=== PATIENT | female | born 1965 | race Caucasian/White ===

== ENCOUNTER 2017-06-18 21:16 | Emergency (ER) | payer BC ==
[2017-06-18] MEDS ORDERED: Clindamycin CAP* 150 MG PO ONE (21:34)
[2017-06-18] MEDS ORDERED: diPHENhydraMINE LIQ* 12.5 MG/5 ML UDC PO ONE (21:36)
[2017-06-18] MEDS ORDERED: Al Hydrox/Mg Hydrox/Simet LIQ* 30 ML UDC PO ONE (21:36)
[2017-06-18] MEDS ORDERED: Lidocaine 2% VISCOUS* 15 ML UDC SWISH SPIT ONE (21:39)
[2017-06-18 21:40] VITALS: BP 158/90
--- NOTE | 2017-06-18 21:54 | UC ---
Skin Complaint HPI - HPI Summary HPI Summary: 1. Ulcerations on right side of palate for 1 day 2 Abscess on left lower abdomen for 2 days now open and draining - History of Current Complaint Chief Complaint: UCGeneralIllness Time Seen by Provider: 06/18/17 21:27 Stated Complaint: MOUTH ISSUE Hx Obtained From: Patient ?: No Onset/Duration: Sudden Onset Skin Exposure Onset/Duration: Days Ago Timing: Constant Onset Severity: Moderate Current Severity: Moderate Pain Intensity: 6 Pain Scale Used: 0-10 Numeric Character: Redness, Raised, Painful Aggravating Factor(s): Nothing Alleviating Factor(s): Heat - abdomen Associated Signs & Symptoms: Positive: Drainage - abdomen - Allergy/Home Medications Allergies/Adverse Reactions: Allergies Allergy/AdvReac Type Severity Reaction Status Date / Time No Known Allergies Allergy Verified 06/18/17 21:35 Review of Systems Constitutional: Negative Skin: Other - open are left lower abdomen, gingival ulcers right side of palate Eyes: Negative ENT: Negative Respiratory: Negative Cardiovascular: Negative Gastrointestinal: Negative Genitourinary: Negative Motor: Negative Neurovascular: Negative Musculoskeletal: Negative Neurological: Negative Psychological: Negative Is Patient Immunocompromised?: No All Other Systems Reviewed And Are Negative: Yes PMH/Surg Hx/FS Hx/Imm Hx Previously Healthy: Yes - Surgical History Surgical History: Yes Surgery Procedure, Year, and Place: Gallbladder - Family History Known Family History: Positive: None - Social History Occupation: Employed Full-time Lives: With Family Alcohol Use: None Substance Use Type: None Smoking Status (MU): Never Smoked Tobacco Physical Exam Triage Information Reviewed: Yes Appearance: No Pain Distress, Ill-Appearing - mild, Obese Vital Signs: Initial Vital Signs Temp 98.4 F 06/18/17 21:35 Pulse 86 06/18/17 21:35 Resp 16 06/18/17 21:35 BP 158/90 06/18/17 21:35 Pulse Ox 99 06/18/17 21:35 Vital Signs Reviewed: Yes Eye Exam: Normal Eyes: Positive: Conjunctiva Clear ENT Exam: Normal ENT: Positive: Normal ENT inspection, Hearing grossly normal, Pharyngeal erythema - right side of palate with ulcerations, TMs normal, Uvula midline. Negative: Nasal congestion, Tonsillar swelling, Tonsillar exudate, Trismus, Muffled voice, Hoarse voice, Dental tenderness, Sinus tenderness Dental Exam: Normal Neck exam: Normal Neck: Positive: Supple, Nontender, No Lymphadenopathy Respiratory Exam: Normal Respiratory: Positive: Chest non-tender, Lungs clear, Normal breath sounds, No respiratory distress, No accessory muscle use Cardiovascular Exam: Normal Cardiovascular: Positive: RRR, No Murmur, Pulses Normal, Brisk Capillary Refill Abdominal Exam: Normal Abdomen Description: Positive: Nontender, No Organomegaly, Soft Bowel Sounds: Positive: Present Musculoskeletal Exam: Normal Musculoskeletal: Positive: Strength Intact, ROM Intact, No Edema Neurological Exam: Normal Neurological: Positive: Alert, Muscle Tone Normal Psychological Exam: Normal Skin Exam: Other Skin: Positive: Other - 10x17 erythema with purulent draining center induration 4 cm diameter Course/Dx - Course Course Of Treatment: wound culture, magic mouthwash, clindamycin, follow with pcp - Diagnoses Provider Diagnoses: gingival stomatitis, left abd all cellulitis with draining abscess, elevated blood pressure without diagnosis of hypertension Discharge - Discharge Plan Condition: Stable Disposition: HOME Prescriptions: Clindamycin Cap(NF) [Clindamycin Cap 300 mg Cap(NF)] 300 mg PO TID #30 cap Patient Education Materials: Abscess (ED), Gingivostomatitis (ED), Warm Compress or Soak (ED) Referrals: Jo Ann Bassett NP [Primary Care Provider] - 3 Days
== END 2017-06-18 22:08 | disposition home or self-care (01) ==
LOC: UCCORT 21:16
DX: K12.1 Other forms of stomatitis (principal); L03.311 Cellulitis of abdominal wall; L02.211 Cutaneous abscess of abdominal wall; R03.0 Elevated blood-pressure reading, without diagnosis of hypertension
CPT/HCPCS: 87070; 87205; 99213; A9270-GY; G0463

== ENCOUNTER 2017-07-16 18:03 | Emergency (ER) | payer BC ==
[2017-07-16 19:41] VITALS: BP 144/79
--- NOTE | 2017-07-16 19:57 | UC ---
UC General HPI - HPI Summary HPI Summary: swollen lymphnodes right axilla and neck x 1 week + fever , chills no sore throat, no cough, no rash or lesions - History of Current Complaint Chief Complaint: UCGeneralIllness Stated Complaint: SWOLLEN GLANDS & THROAT Time Seen by Provider: 07/16/17 19:40 Hx Obtained From: Patient Hx Last Menstrual Period: 07/06/17 Onset/Duration: Gradual Onset, Lasting Days - 7, Still Present Timing: Constant Onset Severity: Moderate Current Severity: Moderate Pain Intensity: 1 Pain Location at: right axilla Pain Radiates to: no Aggravating: touch Alleviating: Ibuprofen Associated Signs & Symptoms: Negative: Abdominal Pain, Anticoagulation Therapy, Back Pain, Confusion, Cough, Chest Pain, Decreased Responsiveness, Dizziness, Diarrhea, Dysuria, Decreased Oral Intake, Diaphoresis, Edema, Fever, Headache, Nausea, Palpitations, Trauma - Allergy/Home Medications Allergies/Adverse Reactions: Allergies Allergy/AdvReac Type Severity Reaction Status Date / Time No Known Allergies Allergy Verified 07/16/17 19:37 Home Medications: Home Medications Acetaminophen [Acetaminophen Extra Strength] 1,000 mg PO ONCE 07/16/17 [History Confirmed 07/16/17] Meloxicam 7.5 mg PO DAILY 07/16/17 [History Confirmed 07/16/17] PMH/Surg Hx/FS Hx/Imm Hx Previously Healthy: Yes - Surgical History Surgical History: Yes Surgery Procedure, Year, and Place: Gallbladder - Family History Known Family History: Positive: None Negative: Blood Disorder - Social History Alcohol Use: None Substance Use Type: None Smoking Status (MU): Never Smoked Tobacco Review of Systems Constitutional: Fever, Chills, Fatigue Skin: Negative Eyes: Negative ENT: Negative Respiratory: Negative Cardiovascular: Negative Is Patient Immunocompromised?: No All Other Systems Reviewed And Are Negative: Yes Physical Exam Triage Information Reviewed: Yes Appearance: Well-Appearing, Obese Vital Signs: Initial Vital Signs Temp 99.4 F 07/16/17 19:34 Pulse 84 07/16/17 19:34 Resp 16 07/16/17 19:34 BP 144/79 07/16/17 19:34 Pulse Ox 99 07/16/17 19:34 Vital Signs Reviewed: Yes Eyes: Positive: Conjunctiva Clear ENT: Positive: Normal ENT inspection, Hearing grossly normal, Pharynx normal, Pharyngeal erythema Neck: Positive: Supple, Nontender, Enlarged Nodes @ - right axillary , cervical lymphadenopathy Respiratory Exam: Normal Respiratory: Positive: Chest non-tender, Lungs clear, Normal breath sounds Cardiovascular: Positive: RRR, No Murmur, Pulses Normal Abdomen Description: Positive: Nontender, Soft Skin Exam: Normal Course/Dx - Differential Dx - Multi-Symptom Provider Diagnoses: lymphadenopathy Discharge - Discharge Plan Condition: Stable Disposition: HOME Patient Education Materials: Lymphadenopathy (ED) Referrals: Jo Ann Bassett NP [Primary Care Provider] - 2 Weeks
== END 2017-07-16 19:58 | disposition home or self-care (01) ==
LOC: UCCORT 18:03
DX: R59.1 Generalized enlarged lymph nodes (principal)
CPT/HCPCS: 99211; G0463

== ENCOUNTER 2017-09-11 08:05 | Emergency (ER) | payer BC ==
[2017-09-11 08:24] VITALS: BP 130/79
--- NOTE | 2017-09-11 08:58 | ED ---
GI/ HPI - HPI Summary HPI Summary: 51 yr old female with dysuria, frequency of urination, and feeling tired for about three days. She also has the complaint of boil developing along her waistline on left near where she had one a few months ago. She denies runny nose, cough, sore throat, NVD, vaginal discharge or bleeding. No other complaints. - History of Current Complaint Chief Complaint: UCGU Time Seen by Provider: 09/11/17 08:17 Stated Complaint: URINARY COMPLAINT Hx Last Menstrual Period: 08/30/17 Pain Intensity: 4 - Allergy/Home Medications Allergies/Adverse Reactions: Allergies Allergy/AdvReac Type Severity Reaction Status Date / Time No Known Allergies Allergy Verified 09/11/17 08:18 Home Medications: Home Medications Acetaminophen TAB* [Tylenol TAB*] 1,000 mg BID PRN 09/11/17 [History Confirmed 09/11/17] Oxybutynin XL TAB* [Ditropan XL TAB*] 10 mg PO QAM 09/11/17 [History Confirmed 09/11/17] PMH/Surg Hx/FS Hx/Imm Hx - Surgical History Surgery Procedure, Year, and Place: Gallbladder Infectious Disease History: No Infectious Disease History: Denies: Traveled Outside the [place] in Last 30 Days - Family History Known Family History: Positive: None Negative: Blood Disorder - Social History Occupation: Employed Full-time Lives: With Family Alcohol Use: None Substance Use Type: Reports: None Smoking Status (MU): Never Smoked Tobacco Review of Systems Positive: Fatigue. Negative: Fever, Chills Negative: Photophobia Negative: Sore Throat, Ear Ache, Nasal Discharge Negative: Palpitations, Chest Pain Negative: Cough Negative: Abdominal Pain, Vomiting, Diarrhea, Nausea Positive: dysuria, frequency Negative: Arthralgia, Myalgia Positive: Other - furuncle on abdominal wall Negative: Paresthesia, Numbness, Syncope Negative: Anxious, Depressed All Other Systems Reviewed And Are Negative: Yes Physical Exam Triage Information Reviewed: Yes Vital Signs On Initial Exam: Initial Vitals Temp Pulse Resp BP Pulse Ox 98.1 F 67 16 130/79 99 09/11/17 08:19 09/11/17 08:19 09/11/17 08:19 09/11/17 08:19 09/11/17 08:19 Vital Signs Reviewed: Yes Appearance: Positive: Well-Appearing, No Pain Distress Skin: Positive: Warm, Other - there is an early furuncle on the anterior left abdominal wall at the belt line that is not fluctuant. There is about 2 inches of redness diameter ENT: Positive: TMs normal, Uvula midline. Negative: Pharynx normal, Muffled voice, Hoarse voice Respiratory/Lung Sounds: Positive: Clear to Auscultation, Breath Sounds Present Cardiovascular: Positive: RRR. Negative: Murmur Abdomen Description: Positive: Nontender Musculoskeletal: Positive: Strength/ROM Intact Neurological: Positive: Sensory/Motor Intact, Alert, Oriented to Person Place, Time, CN Intact II-III Psychiatric: Positive: Normal - Shari Coma Scale Best Eye Response: 4 - Spontaneous Best Motor Response: 6 - Obeys Commands Best Verbal Response: 5 - Oriented Coma Scale Total: 15 Diagnostics - Vital Signs Vital Signs Temp Pulse Resp BP Pulse Ox 09/11/17 08:19 98.1 F 67 16 130/79 99 - Laboratory Lab Results: Lab Results 09/11/17 Range/Units 08:27 POC Urine Color Yellow POC Urine Clarity Clear POC Urine pH 6.0 (5-9) POC Ur Specif [place] 1.015 (1.010-1.030) POC Urine Protein Negative (Negative) POC Ur Glucose (UA) Negative (Negative) POC Urine Ketones Negative (Negative) POC Urine Blood Negative (Negative) POC Urine Nitrite Negative (Negative) POC Urine Bilirubin Negative (Negative) POC Urine Urobilinogen 0.2 (Negative) POC U Leukocyte Esteras Negative (Negative) Lab Statement: Any lab studies that have been ordered have been reviewed, and results considered in the medical decision making process. GIGU Course/Dx - Course Course Of Treatment: 51 yr old female with furuncle that is early and UTI symptoms with neg urine. Culture urine sent. And she is covered for the early furuncle with bactrim DS for ten days. - Diagnoses Provider Diagnoses: Furuncle of abdominal wall Discharge - Sign-Out/Discharge Documenting (check all that apply): Discharge/Admit/Transfer - Discharge Plan Condition: Good Disposition: HOME Prescriptions: Sulfamethox/Trimethoprim DS* [Bactrim DS 800/160 TAB*] 1 tab PO BID #20 tab Patient Education Materials: Furunculosis and Carbunculosis (ED) Referrals: Jo Ann Bassett NP [Primary Care Provider] - 2 Days - Billing Disposition and Condition Condition: GOOD Disposition: HOME
== END 2017-09-11 08:52 | disposition home or self-care (01) ==
LOC: UCCORT 08:05
DX: L02.221 Furuncle of abdominal wall (principal); B96.20 Unspecified Escherichia coli [E. coli] as the cause of diseases classified elsewhere; Z16.11 Resistance to penicillins
CPT/HCPCS: 81003; 87077; 87086; 87186; 99212; G0463